=== PATIENT | female | born 1975 ===

== ENCOUNTER 2016-09-17 10:20 | Emergency (ER) | payer OTHER ==
[2016-09-17 10:26] VITALS: BMI 22.4
[2016-09-17 10:27] VITALS: BP 104/71; PULSE 61; RESP 18; TEMP 98.4; O2SAT 97
--- NOTE | 2016-09-17 10:51 | ED PDOC ---
HPI: Eye Injury/Pain Time Seen by Provider: 09/17/16 10:31 Chief Complaint (Nursing): Eye Problem Chief Complaint (Provider): Left eye redness and fb sensation x 1 week History Per: Patient History/Exam Limitations: no limitations Onset/Duration Of Symptoms: Days Current Symptoms Are (Timing): Still Present Severity: Mild Description Of Pain/Injury (Context): None Quality: Other (Scratchy ) Associated Symptoms: Pain, FB Sensation, Discharge From Eye (White ) Past Medical History Reviewed: Historical Data, Nursing Documentation, Vital Signs Vital Signs: Last Vital Signs Temp 98.4 F 09/17/16 10:26 Pulse 61 09/17/16 10:26 Resp 18 09/17/16 10:26 BP 104/71 09/17/16 10:26 Pulse Ox 97 09/17/16 10:26 - Medical History PMH: No Chronic Diseases - Surgical History Surgical History: No Surg Hx - Family History Family History: States: Unknown Family Hx - Living Arrangements Living Arrangements: With Family - Immunization History 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) - Home Medications Home Medications: Ambulatory Orders Medication Instructions Recorded Polymyxin/Trimethoprim Sulfate 1 drop XX Q6H 10 Days 09/17/16 [Polytrim Ophth Soln] - Allergies Allergies/Adverse Reactions: Allergies Allergy/AdvReac Type Severity Reaction Status Date / Time No Known Allergies Allergy Verified 04/23/15 18:04 Review of Systems ROS Statement: Except As Marked, All Systems Reviewed And Found Negative Constitutional: Negative for: Fever, Chills Eyes: Positive for: Pain (FB sensation), Redness, Other (Drainage ) ENT: Negative for: Nose Discharge Physical Exam - Reviewed Nursing Documentation Reviewed: Yes Vital Signs Reviewed: Yes - Physical Exam Appears: Positive for: Well, Non-toxic, No Acute Distress Head Exam: Positive for: ATRAUMATIC, NORMAL INSPECTION, NORMOCEPHALIC Skin: Positive for: Normal Color, Warm, DRY Eye Exam: Positive for: EOMI, PERRL, Conjunctival injection, Other (No abrasions , No FB ). Negative for: Normal appearance ENT: Positive for: Normal ENT Inspection Neck: Positive for: Normal, Painless ROM Respiratory: Negative for: Accessory Muscle Use, Respiratory Distress Gastrointestinal/Abdominal: Positive for: Normal Exam, Bowel Sounds, Soft Back: Positive for: Normal Inspection Extremity: Positive for: Normal ROM. Negative for: Tenderness Neurologic/Psych: Positive for: Alert, Oriented - ECG O2 Sat by Pulse Oximetry: 97 Disposition - Clinical Impression Clinical Impression: Bacterial conjunctivitis - Patient ED Disposition Is Patient to be Admitted: No Counseled Patient/Family Regarding: Diagnosis, Need For Followup, Rx Given - Disposition Referrals: Iam Banegas MD [Staff Provider] - Disposition: Routine/Home Disposition Time: 10:51 Condition: GOOD Prescriptions: Polymyxin/Trimethoprim Sulfate [Polytrim Ophth Soln] 1 drop XX Q6H 10 Days Instructions: Conjunctivitis (ED) Print Language: TRINIDADIAN
== END 2016-09-17 12:08 | disposition home or self-care (01) ==
LOC: H.ER 10:20
DX: H10.023 Other mucopurulent conjunctivitis, bilateral (principal)

== ENCOUNTER 2016-10-18 17:28 | Emergency (ER) | payer OTHER ==
[2016-10-18 17:29] VITALS: BMI 22.4
[2016-10-18 17:37] VITALS: BP 102/63; PULSE 76; RESP 18; TEMP 98.2; O2SAT 99
--- NOTE | 2016-10-18 18:24 | ED PDOC ---
HPI: General Adult Time Seen by Provider: 10/18/16 17:37 Chief Complaint (Nursing): ENT Problem Chief Complaint (Provider): Difficulty speaking History Per: Patient History/Exam Limitations: no limitations Onset/Duration Of Symptoms: Days (x 2 weeks) Current Symptoms Are (Timing): Still Present Additional Complaint(s): Isabelle Paul is a 41 y/o female who presents to the ED complaining that two weeks ago she lost her voice and since then she is having difficulty speaking. She states having to almost scream in order for people to hear her, and by the end of the day she feels almost mute. Denies pain, nausea, vomiting, and diarrhea. 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 Otherwise patient has no medical problems. Albanian interpretation was provided by pediatrics physician #[id number]. 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 Negative for: Throat Pain Gastrointestinal: Negative for: Nausea, Vomiting, Diarrhea Physical Exam - Reviewed Nursing Documentation Reviewed: Yes Vital Signs Reviewed: Yes - Physical Exam Appears: Positive for: Well, Non-toxic, No Acute Distress Head Exam: Positive for: ATRAUMATIC, NORMAL INSPECTION, NORMOCEPHALIC Skin: Positive for: Normal Color, Warm, Dry Eye Exam: Positive for: EOMI, Normal appearance, PERRL ENT: Positive for: Normal ENT Inspection, Pharynx Is (clear), TM Is/Are (normal) Neck: Positive for: Normal, Painless ROM, Supple Cardiovascular/Chest: Positive for: Regular Rate, Rhythm. Negative for: Murmur Respiratory: Positive for: Normal Breath Sounds. Negative for: Accessory Muscle Use, Respiratory Distress Extremity: Positive for: Normal ROM. Negative for: Deformity Neurologic/Psych: Positive for: Alert, Oriented - ECG O2 Sat by Pulse Oximetry: 99 (RA) Pulse Ox Interpretation: Normal Medical Decision Making Medical Decision Making: Time: 18:21 Clinical Impression: Laryngitis Upon provider evaluation patient is medically stable, and requires no further treatment in the ED at this time. Patient will be discharged home with Rx for Prednisone. Counseling was provided and all questions were answered regarding diagnosis and need for follow up with ENT. There is agreement to discharge plan. Return if symptoms persist or worsen. Scribe Attestation: Documented by Radha Lock, acting as a scribe for Barbie Cortes PA-C Provider Scribe Attestation: All medical record entries made by the Scribe were at my direction and personally dictated by me. I have reviewed the chart and agree that the record accurately reflects my personal performance of the history, physical exam, medical decision making, and the department course for this patient. I have also personally directed, reviewed, and agree with the discharge instructions and disposition. Disposition - Clinical Impression Clinical Impression: Laryngitis - Patient ED Disposition Is Patient to be Admitted: No Counseled Patient/Family Regarding: Diagnosis, Need For Followup, Rx Given - Disposition Referrals: Carloz Ansari MD [Staff Provider] - Disposition: Routine/Home Disposition Time: 18:21 Condition: STABLE Prescriptions: predniSONE [predniSONE Tab] 20 mg PO DAILY #12 tab Instructions: Laryngitis (ED) Forms: [facility] (Tuvaluan) Print Language: MALAY
== END 2016-10-18 18:40 | disposition home or self-care (01) ==
LOC: H.ER 17:28
DX: J04.0 Acute laryngitis (principal)

== ENCOUNTER 2016-11-10 15:23 | Emergency (ER) | payer OTHER ==
[2016-11-10 15:23] VITALS: BMI 22.4
[2016-11-10 15:34] VITALS: BP 111/69; PULSE 66; RESP 18; TEMP 98.6; O2SAT 99
[2016-11-10 17:34] LABS: URINE BILIRUBIN NEGATIVE (NEGATIVE); URINE BLOOD SMALL (NEGATIVE); URINE COLOR YELLOW (YELLOW); URINE GLUCOSE (UA) NEG (Normal); URINE KETONE NEGATIVE (NEGATIVE); URINE LEUKOCYTE ESTERASE LARGE Leu/uL (Negative); URINE PROTEIN NEGATIVE (NEGATIVE); URINE UROBILINOGEN 0.2-1.0 mg/dL (0.2-1.0); WBC CLUMPS FEW /hpf; WBC URINE 67 /hpf (0-5)
[2016-11-10 17:36] LABS: RBC URINE 9 /hpf (0-3); URINE BACTERIA FEW (<OCC)
--- NOTE | 2016-11-10 17:53 | ED PDOC ---
HPI: Female Pain Time Seen by Provider: 11/10/16 15:46 Chief Complaint (Nursing): Female Genitourinary Chief Complaint (Provider): vaignal d/c History Per: Patient, English Faculty Member History/Exam Limitations: no limitations Additional Complaint(s): 41yo F in Ed for eval of vaginal d/c and foul odor with mild cramping x 1 month. PT denies painful intercourse doubts possible ST dneies vaginal bleeding but does see hematuira and has urinary freq and urgency. denies abck pain fever chills. 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) - Home Medications Home Medications: Ambulatory Orders Medication Instructions Recorded Polymyxin/Trimethoprim Sulfate 1 drop XX Q6H 10 Days 09/17/16 [Polytrim Ophth Soln] predniSONE [predniSONE Tab] 20 mg PO DAILY #12 tab 10/18/16 Nitrofurantoin Macrocrystals 100 mg PO BID #14 cap 11/10/16 [Macrobid] - Allergies Allergies/Adverse Reactions: Allergies Allergy/AdvReac Type Severity Reaction Status Date / Time No Known Allergies Allergy Verified 04/23/15 18:04 Review of Systems ROS Statement: Except As Marked, All Systems Reviewed And Found Negative Constitutional: Negative for: Fever, Chills Gastrointestinal: Negative for: Nausea, Vomiting, Abdominal Pain Genitourinary Female: Positive for: Dysuria, Frequency, Hematuria, Vaginal Discharge, Pelvic Pain. Negative for: Vaginal Bleeding Musculoskeletal: Negative for: Back Pain Physical Exam - Reviewed Nursing Documentation Reviewed: Yes Vital Signs Reviewed: Yes - Physical Exam Appears: Positive for: Well, Non-toxic, No Acute Distress Skin: Positive for: Normal Color, Warm, DRY Cardiovascular/Chest: Positive for: Regular Rate, Rhythm Respiratory: Positive for: CNT, Normal Breath Sounds Gastrointestinal/Abdominal: Positive for: Normal Exam, Bowel Sounds, Soft. Negative for: Tenderness Pelvic Exam: Positive for: External Exam Normal, Bimanual Exam Normal, No Cerv. Motion Tender, No Masses, Discharge (yellow). Negative for: Active Bleeding, Blood, Cervicitis, Lesions, Mass, Tender W/Cervical Motion, Tender Adnexa, Tender Uterus, Ulcers Back: Positive for: Normal Inspection. Negative for: L CVA Tenderness, R CVA Tenderness Extremity: Positive for: Normal ROM Neurologic/Psych: Positive for: Alert, Oriented - ECG O2 Sat by Pulse Oximetry: 99 - Progress ED Course And Treament: PT tested for chlamydia, gonorrhea and vaginal culture. Pt with UTI will be treated with macrobid and advised to have obgyn f.u abstain from sexual intercourse until results. pt opts to not be treated in ER at this time Medical Decision Making Medical Decision Making: advised test results will be in in 3-5days. Disposition - Clinical Impression Clinical Impression: UTI (urinary tract infection), Concern about STD in female without diagnosis - Patient ED Disposition Is Patient to be Admitted: No Counseled Patient/Family Regarding: Studies Performed, Diagnosis, Need For Followup, Rx Given - Disposition Referrals: [facility] [Outside] [facility] [Outside] Disposition: Routine/Home Disposition Time: 18:00 Condition: STABLE Prescriptions: Nitrofurantoin Macrocrystals [Macrobid] 100 mg PO BID #14 cap Instructions: Urinary Tract Infection in Women (ED) Forms: [facility] (Paraguayan) Print Language: HUNGARIAN
== END 2016-11-10 18:30 | disposition home or self-care (01) ==
LOC: H.ER 15:23
DX: N39.0 Urinary tract infection, site not specified (principal); Z71.1 Person with feared health complaint in whom no diagnosis is made

== ENCOUNTER 2017-01-10 18:17 | Emergency (ER) | payer OTHER ==
[2017-01-10 18:17] VITALS: BMI 22.4
[2017-01-10 18:25] VITALS: BP 93/53; PULSE 79; RESP 16; TEMP 97.3; O2SAT 100
--- NOTE | 2017-01-10 18:51 | ED PDOC ---
HPI: Female Pain Time Seen by Provider: 01/10/17 18:27 Chief Complaint (Nursing): Female Genitourinary Chief Complaint (Provider): dysuria History Per: Patient Additional Complaint(s): 41-year-old female with no past medical history presents to emergency Department with dysuria for the past 2 days. Patient has suprapubic discomfort as well. Patient states that she has been taking [id number] Azo tablets but these have not helped. She denies any back pain, nausea, vomiting, fever or chills. 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) - Home Medications Home Medications: Ambulatory Orders Medication Instructions Recorded Polymyxin/Trimethoprim Sulfate 1 drop XX Q6H 10 Days bottle 09/17/16 [Polytrim Ophth Soln] predniSONE [predniSONE Tab] 20 mg PO DAILY #12 tab 10/18/16 Nitrofurantoin Macrocrystals 100 mg PO BID #14 cap 11/10/16 [Macrobid] Nitrofurantoin Macrocrystals 100 mg PO BID #14 tab 01/10/17 [Macrobid] - Allergies Allergies/Adverse Reactions: Allergies Allergy/AdvReac Type Severity Reaction Status Date / Time No Known Allergies Allergy Verified 04/23/15 18:04 Review of Systems ROS Statement: Except As Marked, All Systems Reviewed And Found Negative Constitutional: Negative for: Fever, Chills Gastrointestinal: Positive for: Abdominal Pain. Negative for: Nausea, Vomiting , Diarrhea Genitourinary Female: Positive for: Dysuria, Frequency. Negative for: Hematuria , Vaginal Discharge, Vaginal Bleeding Physical Exam - Reviewed Nursing Documentation Reviewed: Yes Vital Signs Reviewed: Yes - Physical Exam Appears: Positive for: Well, Non-toxic, No Acute Distress Skin: Negative for: Rash Eye Exam: Positive for: Normal appearance Cardiovascular/Chest: Positive for: Regular Rate, Rhythm Respiratory: Positive for: Normal Breath Sounds Gastrointestinal/Abdominal: Positive for: Soft, Tenderness (Mild tenderness to suprapubic region with no rebound or guarding) Back: Negative for: L CVA Tenderness, R CVA Tenderness Neurologic/Psych: Positive for: Alert, Oriented - Laboratory Results Urine POC: Negative Urine dip results: Positive for: Nitrate (positive). Negative for: Leukocyte Esterase, Blood, Ketones, Glucose, Bilirubin, Protein - ECG O2 Sat by Pulse Oximetry: 100 Pulse Ox Interpretation: Normal Medical Decision Making Medical Decision Makin-year-old female with dysuria for 2 days. Plan: Urine test Urine dip Urine dip is positive for nitrites. Patient was started on Macrobid, initial dose given in the ED along with prescription for same. Patient was instructed to drink plenty of fluids and follow-up with clinic in 2-3 days. Disposition - Clinical Impression Clinical Impression: UTI (urinary tract infection) - Patient ED Disposition Is Patient to be Admitted: No Counseled Patient/Family Regarding: Studies Performed, Diagnosis, Need For Followup, Rx Given - Disposition Referrals: [facility] [Outside] Disposition: Routine/Home Disposition Time: 20:01 Condition: STABLE Additional Instructions: Take antibiotics as directed to completion. Drink plenty of fluids. Follow-up with clinic in 2-3 days. Prescriptions: Nitrofurantoin Macrocrystals [Macrobid] 100 mg PO BID #14 tab Instructions: Urinary Tract Infection in Women (ED) Forms: [facility] (Austrian) Print Language: GEORGIAN
== END 2017-01-10 20:30 | disposition home or self-care (01) ==
LOC: H.ER 18:17
DX: N39.0 Urinary tract infection, site not specified (principal)

== ENCOUNTER 2017-09-20 17:17 | Emergency (ER) | payer OTHER ==
[2017-09-20 17:17] VITALS: BMI 22.4
[2017-09-20 17:25] VITALS: BP 117/77; PULSE 65; RESP 18; TEMP 98.2; O2SAT 97
--- NOTE | 2017-09-20 18:00 | ED PDOC ---
HPI: Back Time Seen by Provider: 09/20/17 17:29 Chief Complaint (Nursing): Back Pain Chief Complaint (Provider): Lower Back Pain History Per: Patient History/Exam Limitations: no limitations Onset/Duration Of Symptoms: Days (x3) Current Symptoms Are (Timing): Still Present Additional Complaint(s): 42 year old female presents to the ED for evaluation of left lower back pain onset three days ago. Patient denies taking any medication for the pain, associated abdominal pain, pain on urination, fever, nausea, or vomiting. 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) - Home Medications Home Medications: Ambulatory Orders Medication Instructions Recorded Polymyxin/Trimethoprim Sulfate 1 drop XX Q6H 10 Days bottle 09/17/16 [Polytrim Ophth Soln] predniSONE [predniSONE Tab] 20 mg PO DAILY #12 tab 10/18/16 Nitrofurantoin Macrocrystals 100 mg PO BID #14 cap 11/10/16 [Macrobid] Nitrofurantoin Macrocrystals 100 mg PO BID #14 tab 01/10/17 [Macrobid] Ciprofloxacin [Cipro] 500 mg PO BID #14 tab 09/20/17 Phenazopyridine HCl [Pyridium] 100 mg PO TID #6 tab 09/20/17 - Allergies Allergies/Adverse Reactions: Allergies Allergy/AdvReac Type Severity Reaction Status Date / Time No Known Allergies Allergy Verified 09/20/17 17:25 Review of Systems ROS Statement: Except As Marked, All Systems Reviewed And Found Negative Constitutional: Negative for: Fever Gastrointestinal: Negative for: Nausea, Vomiting, Abdominal Pain Genitourinary Female: Negative for: Other (pain on urination) Musculoskeletal: Positive for: Back Pain (left lower) Physical Exam - Reviewed Nursing Documentation Reviewed: Yes Vital Signs Reviewed: Yes - Physical Exam Appears: Positive for: No Acute Distress Head Exam: Positive for: ATRAUMATIC, NORMOCEPHALIC Skin: Positive for: Normal Color, Warm, Dry Eye Exam: Positive for: Normal appearance Neck: Positive for: Normal, Painless ROM, Supple Cardiovascular/Chest: Positive for: Regular Rate, Rhythm Respiratory: Positive for: Normal Breath Sounds. Negative for: Accessory Muscle Use, Respiratory Distress Gastrointestinal/Abdominal: Positive for: Normal Exam, Soft. Negative for: Tenderness Back: Positive for: L CVA Tenderness. Negative for: R CVA Tenderness, Vertebral Tenderness Extremity: Positive for: Normal ROM Neurologic/Psych: Positive for: Alert, Oriented (x3). Negative for: Motor/ Sensory Deficits - Laboratory Results Urine POC: Negative Urine dip results: Positive for: Leukocyte Esterase (large), Blood (large) - ECG O2 Sat by Pulse Oximetry: 97 (RA) Pulse Ox Interpretation: Normal Medical Decision Making Medical Decision Making: Time: 18:01 Initial Impression: Lower back pain, r/o pyelonephritis v kidney stone Initial Plan: --Urine --Urine dipstick --Urinalysis Pt reports pain improved after Motrin. Due to large leuks and blood, Cipro administered for UTI. Scribe Attestation: Documented by Yanna Preston, acting as a scribe for Radha Duarte PA-C. Provider Scribe Attestation: All medical record entries made by the Scribe were at my direction and personally dictated by me. I have reviewed the chart and agree that the record accurately reflects my personal performance of the history, physical exam, medical decision making, and the department course for this patient. I have also personally directed, reviewed, and agree with the discharge instructions and disposition. Disposition - Clinical Impression Clinical Impression: UTI (urinary tract infection) - Patient ED Disposition Is Patient to be Admitted: No - Disposition Disposition: Routine/Home Disposition Time: 18:57 Condition: STABLE Prescriptions: Ciprofloxacin [Cipro] 500 mg PO BID #14 tab Phenazopyridine HCl [Pyridium] 100 mg PO TID #6 tab Instructions: Urinary Tract Infection, Adult (DC) Forms: [facility] (Syriac)
[2017-09-20 18:23] LABS: SQUAMOUS EPITHIAL 34 /hpf (0-5); URINE AMORPHOUS SEDIMENT OCC /ul (<OCC); URINE BACTERIA MOD (<OCC); URINE BILIRUBIN NEGATIVE (NEGATIVE); URINE BLOOD NEGATIVE (NEGATIVE); URINE CLARITY TURBID (Clear); URINE COLOR YELLOW (YELLOW); URINE GLUCOSE (UA) NEG (Normal); URINE LEUKOCYTE ESTERASE LARGE Leu/uL (Negative); URINE PROTEIN 30 mg/dL (NEGATIVE); URINE UROBILINOGEN 0.2-1.0 mg/dL (0.2-1.0); WBC CLUMPS FEW /hpf
== END 2017-09-20 19:12 | disposition home or self-care (01) ==
LOC: H.ER 17:17
DX: N39.0 Urinary tract infection, site not specified (principal)

== ENCOUNTER 2017-10-08 15:12 | Emergency (ER) | payer OTHER ==
[2017-10-08 15:12] VITALS: BMI 22.4
[2017-10-08] MEDS ORDERED: Naproxen 500 MG TAB PO STA (15:58)
[2017-10-08] MEDS ORDERED: Naproxen 500 MG TAB PO ONE (16:11)
[2017-10-08 16:22] LABS: SQUAMOUS EPITHIAL < 1 /hpf (0-5); URINE BACTERIA OCC (<OCC); URINE BILIRUBIN NEGATIVE (NEGATIVE); URINE BLOOD MODERATE (NEGATIVE); URINE CLARITY CLEAR (Clear); URINE COLOR AMBER (YELLOW); URINE GLUCOSE (UA) NEG (Normal); URINE LEUKOCYTE ESTERASE MOD Leu/uL (Negative); URINE PROTEIN NEGATIVE (NEGATIVE)
--- NOTE | 2017-10-08 16:24 | ED PDOC ---
HPI: Female Pain Time Seen by Provider: 10/08/17 15:35 Chief Complaint (Nursing): Female Genitourinary Chief Complaint (Provider): Female Genitourinary History Per: Patient History/Exam Limitations: no limitations Onset/Duration Of Symptoms: Hrs Current Symptoms Are (Timing): Still Present Associated Symptoms: Urinary Symptoms Additional Complaint(s): 42 y/o female with no significant PMHx presents to the ED for evaluation of dysuria associated with urinary frequency, urgency and lower abdominal pain since this morning. Patient reports of a history of urinary infections. Patient staes she took one dose of leftover Pyridium at noon today for her symptoms. Otherwise: (-) flank pain, (-) nausea, (-) vomiting, (-) diarrhea, (-) fever, (- ) chills, (-) hematuria, (-) other complaints at this time. 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) - Home Medications Home Medications: Ambulatory Orders Medication Instructions Recorded Polymyxin/Trimethoprim Sulfate 1 drop XX Q6H 10 Days bottle 09/17/16 [Polytrim Ophth Soln] predniSONE [predniSONE Tab] 20 mg PO DAILY #12 tab 10/18/16 Nitrofurantoin Macrocrystals 100 mg PO BID #14 cap 11/10/16 [Macrobid] Nitrofurantoin Macrocrystals 100 mg PO BID #14 tab 01/10/17 [Macrobid] Ciprofloxacin [Cipro] 500 mg PO BID #14 tab 09/20/17 Phenazopyridine HCl [Pyridium] 100 mg PO TID #6 tab 09/20/17 Naproxen 500 mg PO BID PRN #20 tab 10/08/17 Nitrofurantoin Macrocrystals 100 mg PO BID #14 cap 10/08/17 [Macrobid] Phenazopyridine HCl [Pyridium] 200 mg PO BID PRN #4 tablet 10/08/17 - Allergies Allergies/Adverse Reactions: Allergies Allergy/AdvReac Type Severity Reaction Status Date / Time No Known Allergies Allergy Verified 09/20/17 17:25 Review of Systems ROS Statement: Except As Marked, All Systems Reviewed And Found Negative Constitutional: Negative for: Fever, Chills Gastrointestinal: Positive for: Abdominal Pain (lower). Negative for: Nausea, Vomiting, Diarrhea Genitourinary Female: Positive for: Dysuria, Frequency (and urgency ). Negative for: Hematuria Musculoskeletal: Negative for: Back Pain (flank) Physical Exam - Reviewed Nursing Documentation Reviewed: Yes Vital Signs Reviewed: Yes - Physical Exam Comments: GENERAL APPEARANCE: Patient is awake, alert, oriented x 3, in no acute distress. SKIN: Warm, dry; (-) cyanosis. EYES: (-) conjunctival pallor. ENMT: Mucous membranes _moist. Airway patent: (-) stridor. Pharynx: (-) swelling, (-) erythema. NECK: (-) tenderness, (-) stiffness, (-) lymphadenopathy. CHEST AND RESPIRATORY: (-) wheezing; (-) rales, (-) rhonchi, (-) rub; breath sounds equal bilaterally. HEART AND CARDIOVASCULAR: (-) irregularity; (-) murmur, (-) gallop. ABDOMEN AND GI: Soft; (+) mild suprapubic tenderness. (-) CVA tenderness. EXTREMITIES: (-) deformity, (-) edema. NEURO AND PSYCH: Mental status as above; (-) focal findings. - Laboratory Results Urine POC: Negative - ECG O2 Sat by Pulse Oximetry: 99 (RA) Pulse Ox Interpretation: Normal Medical Decision Making Medical Decision Making: Time: 1605 Impression: Dysuria, urinary frequency, probable UTI Plan: -- ED Urine -- Naproxen 500 mg PO -- Urine Culture -- Urinalysis -- Re-evaluation 1700 U/A reviewed (+) UTI. Macrobid 100mg PO ordered. 1730 Patient requesting additional pain medication at this time. Tylenol 650mg PO ordered. 1805 On re-evaluation, patient reports improvement of symptoms. On exam, patient remains AAOx3, in no acute distress. On exam, neck is supple, lungs CTA, cardiac RRR, abdomen is soft and non-distended, neuro exam shows no focal findings. VSS, stable for discharge. Diagnostic results d/w the patient in great detail. Dx of UTI d/w the patient. Based on history, exam and diagnostic results plan will be for discharge and outpatient follow up. Advised to follow up with primary care physician in 1-2 days without fail. Advised to take medication as prescribed. Return to the emergency room at any time for any new or worsening symptoms. Patient states she fully agrees with and understands discharge instructions. States that she agrees with the plan and disposition. Verbalized and repeated discharge instructions and plan. I have given the patient opportunity to ask any additional questions. Scribe Attestation: Documented by Jimmy Tomlin, acting as a scribe for Ashley Moreira PA-C. Provider Scribe Attestation: All medical record entries made by the Scribe were at my direction and personally dictated by me. I have reviewed the chart and agree that the record accurately reflects my personal performance of the history, physical exam, medical decision making, and the department course for this patient. I have also personally directed, reviewed, and agree with the discharge instructions and disposition. Disposition - Clinical Impression Clinical Impression: UTI (urinary tract infection) - Patient ED Disposition Is Patient to be Admitted: No Counseled Patient/Family Regarding: Studies Performed, Diagnosis, Need For Followup, Rx Given - Disposition Referrals: Arjun Rowell MD [Medical Doctor] - Disposition: Routine/Home Disposition Time: 18:08 Condition: STABLE Additional Instructions: The emergency medical care you received today was directed at your acute symptoms. If you were prescribed any medication, please fill it and take as directed. It may take several days for your symptoms to resolve. Return to the Emergency Department if your symptoms worsen, do not improve, or if you have any other problems. Please contact your doctor in 2 days for re-evaluation and follow up / or call one of the physicians/clinics you have been referred to that are listed on the Patient Visit Information form that is included in your discharge packet. Bring any paperwork you were given at discharge with you along with any medications you are taking to your follow up visit. Our treatment cannot replace ongoing medical care by a primary care provider (PCP) outside of the emergency department. Prescriptions: Naproxen 500 mg PO BID PRN #20 tab PRN Reason: Pain, Severe (8-10) Nitrofurantoin Macrocrystals [Macrobid] 100 mg PO BID #14 cap Phenazopyridine HCl [Pyridium] 200 mg PO BID PRN #4 tablet PRN Reason: urinary discomfort Instructions: Urinary Tract Infections in Adults Forms: [facility] (Bahamian), [facility] (Nepali) Print Language: FIJIAN - POA Present On Arrival: None Results - Lab Results Lab Results: 10/08/17 16:05 Urine Color Traci Urine Clarity Clear Urine pH 8.0 Ur Specific [place] < 1.005 Urine Protein Negative Urine Glucose (UA) Neg Urine Ketones Negative Urine Blood Moderate Urine Nitrate Positive H Urine Bilirubin Negative Urine Urobilinogen 2.0 H Ur Leukocyte Esterase Mod Urine RBC (Auto) 5 H Urine Microscopic WBC 16 H Ur Squamous Epith Cells < 1 Urine Bacteria Occ H
[2017-10-08 18:16] VITALS: BP 122/70; PULSE 78; RESP 18; TEMP 98.1; O2SAT 100
== END 2017-10-08 18:16 | disposition home or self-care (01) ==
LOC: H.ER 15:12
DX: N39.0 Urinary tract infection, site not specified (principal)

== ENCOUNTER 2017-12-02 06:39 | Emergency (ER) | payer SELFPAY ==
[2017-12-02 06:39] VITALS: BMI 22.4
[2017-12-02] MEDS ORDERED: PROPARACAINE/FLUORESCEIN SOD 100 DROP/5 ML BOTTLE OU STA (08:16)
--- NOTE | 2017-12-02 08:20 | ED PDOC ---
HPI: Eye Injury/Pain Time Seen by Provider: 12/02/17 08:13 Chief Complaint (Nursing): Eye Problem Chief Complaint (Provider): Eye Problem History Per: Patient History/Exam Limitations: no limitations Onset/Duration Of Symptoms: Days (1) Wears Contact Lens?: No Associated Symptoms: Discharge From Eye (Yellow). denies: Decreased Vision Additional Complaint(s): 42 years old female presents to ER for evaluation of bilateral conjunctiva irritation and injection associated with yellow discharge since yesterday. Patient denies trauma or wearing contact lenses. 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) - Home Medications Home Medications: Ambulatory Orders Medication Instructions Recorded Polymyxin/Trimethoprim Sulfate 1 drop XX Q6H 10 Days bottle 09/17/16 [Polytrim Ophth Soln] predniSONE [predniSONE Tab] 20 mg PO DAILY #12 tab 10/18/16 Nitrofurantoin Macrocrystals 100 mg PO BID #14 cap 11/10/16 [Macrobid] Nitrofurantoin Macrocrystals 100 mg PO BID #14 tab 01/10/17 [Macrobid] Ciprofloxacin [Cipro] 500 mg PO BID #14 tab 09/20/17 Phenazopyridine HCl [Pyridium] 100 mg PO TID #6 tab 09/20/17 Naproxen 500 mg PO BID PRN #20 tab 10/08/17 Nitrofurantoin Macrocrystals 100 mg PO BID #14 cap 10/08/17 [Macrobid] Phenazopyridine HCl [Pyridium] 200 mg PO BID PRN #4 tablet 10/08/17 Tobramycin 0.3% [Tobramycin 5 Ml] 1 drop OP TID #1 bottle 12/02/17 - Allergies Allergies/Adverse Reactions: Allergies Allergy/AdvReac Type Severity Reaction Status Date / Time No Known Allergies Allergy Verified 09/20/17 17:25 Review of Systems ROS Statement: Except As Marked, All Systems Reviewed And Found Negative Eyes: Positive for: Conjunctivae Inflammation, Other (Yellow discharge). Negat angela for: Vision Change Physical Exam - Reviewed Nursing Documentation Reviewed: Yes Vital Signs Reviewed: Yes - Physical Exam Appears: Positive for: Non-toxic, No Acute Distress Eye Exam: Positive for: EOMI, PERRL, Conjunctival injection (Bilateral), Other (No uptake of fluorescein) Neurologic/Psych: Positive for: Alert, Oriented (x3) - ECG O2 Sat by Pulse Oximetry: 99 (RA) Pulse Ox Interpretation: Normal Medical Decision Making Medical Decision Making: Time: 815 Initial Plan: --Flucaine Eye Drops, 1 Drop OU Scribe Attestation: Documented by Sania Dickens, acting as a scribe for Musa Murphy MD. Provider Scribe Attestation: All medical record entries made by the Scribe were at my direction and personally dictated by me. I have reviewed the chart and agree that the record accurately reflects my personal performance of the history, physical exam, medical decision making, and the department course for this patient. I have also personally directed, reviewed, and agree with the discharge instructions and disposition. Disposition - Clinical Impression Clinical Impression: Conjunctivitis - Patient ED Disposition Is Patient to be Admitted: No - Disposition Referrals: Iam Banegas MD [Staff Provider] - Disposition: Routine/Home Disposition Time: 08:25 Condition: FAIR Prescriptions: Tobramycin 0.3% [Tobramycin 5 Ml] 1 drop OP TID #1 bottle Instructions: Conjunctivitis ([place]) Forms: [facility] (Estonian) Print Language: FRISIAN
[2017-12-02 08:28] VITALS: BP 108/70; PULSE 70; RESP 16; TEMP 97.8; O2SAT 98
== END 2017-12-02 09:00 | disposition home or self-care (01) ==
LOC: H.ER 06:39
DX: H10.9 Unspecified conjunctivitis (principal)

== ENCOUNTER 2018-03-15 17:47 | Emergency (ER) | payer SELFPAY ==
[2018-03-15 17:47] VITALS: BMI 22.4
[2018-03-15 18:27] VITALS: RESP 18; TEMP 98.4
--- NOTE | 2018-03-15 18:58 | ED PDOC ---
HPI: Female Pain Time Seen by Provider: 03/15/18 18:30 Chief Complaint (Nursing): Abdominal Pain History Per: Patient Onset/Duration Of Symptoms: Days (2) Current Symptoms Are (Timing): Still Present Severity: Mild Quality Of Discomfort: Unable To Describe Associated Symptoms: denies: Fever, Nausea, Vomiting, Diarrhea, Urinary Symptoms Additional Complaint(s): LLQ pelvic pain assoc with vaginal bleeding as well as yellowish discharge. Denies fever or urinary sxs. 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) Hx Influenza Vaccination: No Hx Pneumococcal Vaccination: No - Home Medications Home Medications: Ambulatory Orders Medication Instructions Recorded Polymyxin/Trimethoprim Sulfate 1 drop XX Q6H 10 Days bottle 09/17/16 [Polytrim Ophth Soln] predniSONE [predniSONE Tab] 20 mg PO DAILY #12 tab 10/18/16 Nitrofurantoin Macrocrystals 100 mg PO BID #14 cap 11/10/16 [Macrobid] Nitrofurantoin Macrocrystals 100 mg PO BID #14 tab 01/10/17 [Macrobid] Ciprofloxacin [Cipro] 500 mg PO BID #14 tab 09/20/17 Phenazopyridine HCl [Pyridium] 100 mg PO TID #6 tab 09/20/17 Naproxen 500 mg PO BID PRN #20 tab 10/08/17 Nitrofurantoin Macrocrystals 100 mg PO BID #14 cap 10/08/17 [Macrobid] Phenazopyridine HCl [Pyridium] 200 mg PO BID PRN #4 tablet 10/08/17 Tobramycin 0.3% [Tobramycin 5 Ml] 1 drop OP TID #1 bottle 12/02/17 Naproxen [Naprosyn] 500 mg PO Q12H #20 tab 03/15/18 - Allergies Allergies/Adverse Reactions: Allergies Allergy/AdvReac Type Severity Reaction Status Date / Time No Known Allergies Allergy Verified 03/15/18 18:27 Review of Systems Constitutional: Negative for: Fever Genitourinary Female: Positive for: Vaginal Discharge, Vaginal Bleeding, Pelvic Pain. Negative for: Dysuria, Frequency Physical Exam - Physical Exam Appears: Positive for: Non-toxic, No Acute Distress Gastrointestinal/Abdominal: Positive for: Bowel Sounds, Soft, Tenderness (LLQ) Pelvic Exam: Positive for: External Exam Normal, No Masses, Tender Adnexa (Left side). Negative for: Active Bleeding, Blood, Discharge, Lesions, Tender W/Cervical Motion, Tender Uterus Back: Negative for: L CVA Tenderness, R CVA Tenderness - ECG O2 Sat by Pulse Oximetry: 99 Disposition - Clinical Impression Clinical Impression: Ovarian cyst - Patient ED Disposition Is Patient to be Admitted: No Counseled Patient/Family Regarding: Studies Performed, Diagnosis, Need For Followup, Rx Given - Disposition [facility] Disposition: Routine/Home Disposition Time: 22:18 Condition: FAIR Prescriptions: Naproxen [Naprosyn] 500 mg PO Q12H #20 tab Instructions: Ovarian Cysts Forms: [facility] (Indonesian) Print Language: MALTESE
[2018-03-16 01:39] VITALS: BP 110/68; PULSE 80; O2SAT 100
--- NOTE | 2018-03-16 09:38 | US ---
Date of service: 03/15/2018 HISTORY: Left pelvic pain COMPARISON: None available. TECHNIQUE: Grayscale, color Doppler and spectral evaluation the pelvis performed transvaginally FINDINGS: UTERUS: Measures 8.9 x 4.6 x 5.4 cm. Anteverted. Normal in size and appearance. No fibroid or other mass lesion seen. ENDOMETRIUM: Measures 9 mm in diameter. Unremarkable. CERVIX: No cervical abnormality identified. RIGHT OVARY: Measures 2.7 x 1.1 x 2.6 cm. No solid mass. Normal flow. LEFT OVARY: Measures 2.7 x 1.8 x 2.4 cm. Complex cyst measuring 1.6 x 1.1 x 1.3. Normal flow. FREE FLUID: No significant free fluid noted. OTHER FINDINGS: None. IMPRESSION: Unremarkable pelvic ultrasound.
== END 2018-03-15 22:30 | disposition home or self-care (01) ==
LOC: H.ER 17:47
DX: N83.202 Unspecified ovarian cyst, left side (principal)